=== PATIENT | male | born 1925 | race Caucasian/White ===

== ENCOUNTER 2016-10-21 15:59 | Inpatient (IN) ==
[2016-10-21] MEDS ORDERED: 0.9 % SODIUM CHLORIDE 500 ML IV ONE (16:31)
--- NOTE | 2016-10-21 16:54 | Emergency Department Note ---
Dizziness HPI - General Chief Complaint: Dizziness Stated Complaint: dizziness, sob, hypotension Time Seen by Provider: 10/21/16 16:46 Source: other Mode of arrival: wheelchair Limitations: no limitations - History of Present Illness HPI Narrative: 89-year-old male seen in wound care, was seen by his primary care provider this morning dr Alvarez at [facility] for CHF and a diuretic was increased. Not picked up his medications yet. when leaving wound care . He stood up and became lightheaded, dizzy was no syncope. No loss of consciousness, but at this time. He states he feels much improved been no signs or symptoms. He does have edema to both extremities and is causing blisters the left lower leg which is being treated in wound care at this time. He is supposed to be wearing his compression socks but has not recently. He has a history of CHF. Dr. Alvarez has increased his torsemide. pt denies any chest pain, or shortness of breath. He's had no cough, no fever, no chills, denies urgency, frequency, dysuria, no nausea, vomiting or diarrhea. - Related Data Home Medications Medication Instructions Recorded Confirmed Albuterol Sulfate [Ventolin] 2 puff INH BID 10/21/16 10/21/16 Apixaban [Eliquis] 2.5 mg PO BID 10/21/16 10/21/16 Atorvastatin [Lipitor] 20 mg PO HS 10/21/16 10/21/16 Budesonide [Pulmicort] 0.5 mg NEB Q12 10/21/16 10/21/16 Carvedilol [Coreg] 1.5 tab PO BID 10/21/16 10/21/16 Docusate Sodium [Colace] 100 mg PO BID 10/21/16 10/21/16 Ipratropium/Albuterol [Duoneb] 3 ml NEB Q6HP PRN 10/21/16 10/21/16 Levothyroxine Sodium [Synthroid] 100 mcg PO DAILY 10/21/16 10/21/16 Ondansetron HCl [Zofran] 4 mg PO Q6H PRN 10/21/16 10/21/16 Spironolactone 25 mg PO DAILY 10/21/16 10/21/16 Tamsulosin HCl [Flomax] 0.4 mg PO DAILY 10/21/16 10/21/16 Tiotropium [place] [Spiriva] 18 mcg INH DAILY 10/21/16 10/21/16 Torsemide [Demadex] 40 mg PO BID 10/21/16 10/21/16 metFORMIN HCL [Fortamet] 500 mg PO BID 10/21/16 10/21/16 predniSONE [Prednisone] 10 mg PO DAILY 10/21/16 10/21/16 Allergies Allergy/AdvReac Type Severity Reaction Status Date / Time GILMER Inhibitors Allergy Verified 10/21/16 16:11 Sulfa (Sulfonamide Allergy Verified 10/21/16 16:11 Antibiotics) furosemide AdvReac Verified 10/21/16 16:11 polypropyline glycol AdvReac Uncoded 10/21/16 16:11 Review of Systems All systems ED: reviewed and negative except as stated. Constitutional: Denies: fever, chills Cardiovascular: Denies: chest pain, palpitations Respiratory: Denies: cough, dyspnea Gastrointestinal: Denies: abdominal pain Genitourinary: Denies: urgency, dysuria Musculoskeletal: Denies: back pain Integumentary: Denies: rash, lesions Neurological: Denies: headache, weakness Psychiatric: Denies: anxiety, depression Endocrine: Denies: fatigue Hematological/Lymphatic: Denies: easy bleeding Allergic/Immunologic: Denies: facial swelling Past Medical History - Past Medical History Medical history: Reports: atrial fibrillation, CHF, COPD, diabetes Surgical history ED: Reports: appendectomy, hip replacement, other (cabg) Family history: Reports: CAD/[place] (father), diabetes (father) - Social History smoking status: Former smoker Alcohol use: Reports: Rarely Drug use: Reports: none Physical Exam - General Limitations: no limitations General appearance: alert - Head Head exam: atraumatic - Eye Eye exam: Present: normal appearance, PERRL - ENT ENT exam: normal exam, normal oropharynx - Neck Neck exam: Present: normal inspection, full ROM - Chest Chest inspection: Present: normal inspection, symmetric chest wall rise - Respiratory Respiratory exam: Present: normal lung sounds bilaterally. Absent: respiratory distress, wheezes - Cardiovascular Cardiovascular exam: Present: regular rate, normal rhythm - Abdominal Exam Abdominal exam: Present: soft. Absent: distention, tenderness - Extremities Exam Extremities exam: Present: pedal edema - Back Exam Back exam: Present: normal inspection - Neurological Exam Neurological exam: Present: alert, oriented X3, CN II-XII intact - Psychiatric Psychiatric exam: Present: normal affect, normal mood Course Vital Signs Temperature 98.0 F 10/21/16 15:59 Pulse Rate 92 H 10/21/16 15:59 Respiratory Rate 14 10/21/16 15:59 Blood Pressure 101/65 10/21/16 15:59 Pulse Oximetry (%) 92 10/21/16 15:59 Temperature 98.0 F 10/21/16 20:24 Pulse Rate 83 10/21/16 23:00 Respiratory Rate 14 10/21/16 23:00 Blood Pressure 112/71 10/21/16 20:24 Pulse Oximetry (%) 98 10/21/16 23:00 Dizziness - Lab Data Result diagrams: 10/21/16 16:47 10/21/16 16:47 Lab Results 10/21/16 10/21/16 10/21/16 Range/Units 16:47 16:47 16:47 WBC 9.5 (4.5-11.0) K/mcL RBC 3.84 L (4.50-5.90) M/mcL Hgb 11.4 L (13.5-16.5) g/dL Hct 34.7 L (41.0-55.0) % MCV 90.4 (80.0-100.0) fL MCH 29.7 (26.0-34.0) pg MCHC 32.9 (31.0-36.0) g/dL RDW 16.5 H (11.5-14.5) % Plt Count 180 (140-440) K/mcL MPV 8.4 (7.4-10.4) fL Gran % 81.5 H (38.0-78.0) % Lymph % (Auto) 11.0 L (15.5-49.0) % [place] % (Auto) 6.8 (1.0-12.0) % Eos % (Auto) 0.5 (0.0-7.0) % Baso % (Auto) 0.2 (0.0-2.0) % Gran # 7.8 (1.8-8.0) K/mcL Lymph # 1.1 L (1.5-4.8) K/mcL [place] # 0.6 (0.1-0.9) K/mcL Eos # 0 (0.0-0.7) K/mcL Baso # 0 (0.0-0.3) K/mcL Total Counted 100 Seg Neutrophils % 84 H (38-78) % Band Neutrophils % 1 (0-10) % Lymphocytes % 8 L (15-49) % Monocytes % (Manual) 7 (1-12) % Platelet Estimate Normal (NORMAL) RBC Morphology Abnorm A (NORMAL) Anisocytosis 1+ A (NONE SEEN) ESR (0-15) mm/hr VBG Lactic Acid 2.9 H (0.5-2.2) mmol/L Sodium 141 (133-145) mmol/L Potassium 3.9 (3.3-5.1) mmol/L Chloride 97 (96-108) mmol/L Carbon Dioxide 28 (22-30) mmol/L Anion Gap 16.0 (8-16) BUN 50 H (8-23) mg/dl Creatinine 1.6 H (0.7-1.2) mg/dl GFR Calculation 38 Glucose 161 H (70-105) mg/dL Calcium 8.9 (8.6-10.4) mg/dl Total Bilirubin 0.6 (0.0-1.0) mg/dL AST 12 (0-37) U/l ALT 11 (0-40) U/l Alkaline Phosphatase 55 (39-117) U/L Total Creatine Kinase 24 (24-195) IU/L CK-MB (CK-2) 1.6 (0-4.9) ng/ml Troponin T (0-0.03) ng/ml C-Reactive Protein (0.0-0.8) mg/dl NT-Pro-B Natriuret Pep (0-450) pg/ml Total Protein 6.2 (5.9-8.4) gm/dL Albumin 3.3 (3.2-5.2) gm/dL Globulin 2.9 (2.2-3.7) gm/dL Albumin/Globulin Ratio 1.1 (1.0-2.3) Procalcitonin (<0.10) ng/mL Mycoplasma pneumon IgM (NEGATIVE) Ur Strep pneumoniae Ag (NEGATIVE) 10/21/16 10/21/16 10/21/16 Range/Units 16:47 16:47 16:47 WBC (4.5-11.0) K/mcL RBC (4.50-5.90) M/mcL Hgb (13.5-16.5) g/dL Hct (41.0-55.0) % MCV (80.0-100.0) fL MCH (26.0-34.0) pg MCHC (31.0-36.0) g/dL RDW (11.5-14.5) % Plt Count (140-440) K/mcL MPV (7.4-10.4) fL Gran % (38.0-78.0) % Lymph % (Auto) (15.5-49.0) % [place] % (Auto) (1.0-12.0) % Eos % (Auto) (0.0-7.0) % Baso % (Auto) (0.0-2.0) % Gran # (1.8-8.0) K/mcL Lymph # (1.5-4.8) K/mcL [place] # (0.1-0.9) K/mcL Eos # (0.0-0.7) K/mcL Baso # (0.0-0.3) K/mcL Total Counted Seg Neutrophils % (38-78) % Band Neutrophils % (0-10) % Lymphocytes % (15-49) % Monocytes % (Manual) (1-12) % Platelet Estimate (NORMAL) RBC Morphology (NORMAL) Anisocytosis (NONE SEEN) ESR 31 H (0-15) mm/hr VBG Lactic Acid (0.5-2.2) mmol/L Sodium (133-145) mmol/L Potassium (3.3-5.1) mmol/L Chloride (96-108) mmol/L Carbon Dioxide (22-30) mmol/L Anion Gap (8-16) BUN (8-23) mg/dl Creatinine (0.7-1.2) mg/dl GFR Calculation Glucose (70-105) mg/dL Calcium (8.6-10.4) mg/dl Total Bilirubin (0.0-1.0) mg/dL AST (0-37) U/l ALT (0-40) U/l Alkaline Phosphatase (39-117) U/L Total Creatine Kinase (24-195) IU/L CK-MB (CK-2) (0-4.9) ng/ml Troponin T < 0.01 (0-0.03) ng/ml C-Reactive Protein (0.0-0.8) mg/dl NT-Pro-B Natriuret Pep 3788.0 H (0-450) pg/ml Total Protein (5.9-8.4) gm/dL Albumin (3.2-5.2) gm/dL Globulin (2.2-3.7) gm/dL Albumin/Globulin Ratio (1.0-2.3) Procalcitonin (<0.10) ng/mL Mycoplasma pneumon IgM (NEGATIVE) Ur Strep pneumoniae Ag (NEGATIVE) 10/21/16 10/21/16 10/21/16 Range/Units 16:47 16:50 16:50 WBC (4.5-11.0) K/mcL RBC (4.50-5.90) M/mcL Hgb (13.5-16.5) g/dL Hct (41.0-55.0) % MCV (80.0-100.0) fL MCH (26.0-34.0) pg MCHC (31.0-36.0) g/dL RDW (11.5-14.5) % Plt Count (140-440) K/mcL MPV (7.4-10.4) fL Gran % (38.0-78.0) % Lymph % (Auto) (15.5-49.0) % [place] % (Auto) (1.0-12.0) % Eos % (Auto) (0.0-7.0) % Baso % (Auto) (0.0-2.0) % Gran # (1.8-8.0) K/mcL Lymph # (1.5-4.8) K/mcL [place] # (0.1-0.9) K/mcL Eos # (0.0-0.7) K/mcL Baso # (0.0-0.3) K/mcL Total Counted Seg Neutrophils % (38-78) % Band Neutrophils % (0-10) % Lymphocytes % (15-49) % Monocytes % (Manual) (1-12) % Platelet Estimate (NORMAL) RBC Morphology (NORMAL) Anisocytosis (NONE SEEN) ESR (0-15) mm/hr VBG Lactic Acid (0.5-2.2) mmol/L Sodium (133-145) mmol/L Potassium (3.3-5.1) mmol/L Chloride (96-108) mmol/L Carbon Dioxide (22-30) mmol/L Anion Gap (8-16) BUN (8-23) mg/dl Creatinine (0.7-1.2) mg/dl GFR Calculation Glucose (70-105) mg/dL Calcium (8.6-10.4) mg/dl Total Bilirubin (0.0-1.0) mg/dL AST (0-37) U/l ALT (0-40) U/l Alkaline Phosphatase (39-117) U/L Total Creatine Kinase (24-195) IU/L CK-MB (CK-2) (0-4.9) ng/ml Troponin T (0-0.03) ng/ml C-Reactive Protein 1.6 H (0.0-0.8) mg/dl NT-Pro-B Natriuret Pep (0-450) pg/ml Total Protein (5.9-8.4) gm/dL Albumin (3.2-5.2) gm/dL Globulin (2.2-3.7) gm/dL Albumin/Globulin Ratio (1.0-2.3) Procalcitonin < 0.05 (<0.10) ng/mL Mycoplasma pneumon IgM Negative (NEGATIVE) Ur Strep pneumoniae Ag Negative (NEGATIVE) Disposition Clinical Impression: CHF (congestive heart failure), Infiltrate noted on imaging study Disposition: Xfer As Inpt ([facility]) Condition: Good
[2016-10-21] MEDS: 0.9 % SODIUM CHLORIDE 500 ML IV SCH (16:55)
[2016-10-21] MEDS ORDERED: 0.9 % SODIUM CHLORIDE 1,000 ML IV SCH ×2 (17:00→20:29)
[2016-10-21 17:19] LABS: Basophils # (Auto) 0 K/mcL (0.0-0.3); Basophils % (Auto) 0.2 % (0.0-2.0); Eosinophils # (Auto) 0 K/mcL (0.0-0.7); Eosinophils % (Auto) 0.5 % (0.0-7.0); Granulocytes % (Auto) 81.5 % (38.0-78.0); Lymphocytes # (Auto) 1.1 K/mcL (1.5-4.8); Mean Cell Volume 90.4 fL (80.0-100.0); Mean Corpuscular HGB Conc 32.9 g/dL (31.0-36.0); Mean Corpuscular Hemoglobin 29.7 pg (26.0-34.0); Monocytes # (Auto) 0.6 K/mcL (0.1-0.9); Monocytes % (Auto) 6.8 % (1.0-12.0); Platelet Count 180 K/mcL (140-440); RBC 3.84 M/mcL (4.50-5.90); Red Cell Distribution Width 16.5 % (11.5-14.5)
[2016-10-21 17:36] LABS: Creatine Kinase MB 1.6 ng/ml (0-4.9)
[2016-10-21 17:37] LABS: ALT/SGPT 11 U/l (0-40); Albumin 3.3 gm/dL (3.2-5.2); Albumin/Globulin Ratio 1.1 (1.0-2.3); Alkaline Phosphatase 55 U/L (39-117); Blood Urea Nitrogen 50 mg/dl (8-23); Creatine Kinase 24 IU/L (24-195)
--- NOTE | 2016-10-21 17:38 | XRay Report ---
CLINICAL INFORMATION: Hypotension. History of congestive heart failure TECHNIQUE: Upright AP portable chest x-ray COMPARISON: None. FINDINGS: Previous median sternotomy. Mild cardiomegaly. Pulmonary vascularity is prominent. There are bibasilar infiltrates consistent with interstitial pulmonary edema. No significant pleural effusion. No consolidation. Clinical correlation and follow-up radiographs necessary IMPRESSION: Mild bibasilar infiltrates consistent with pulmonary edema. Follow-up radiographs recommended. Interpreted and Authenticated by: Andrae Hoover 10/21/16
[2016-10-21] MEDS ORDERED: cefTRIAXone 1 GM in DEXTROSE 5% IN WATER 50 ML IV ONE (18:25)
[2016-10-21] MEDS ORDERED: LEVOFLOXACIN 500 MG/100 ML BAG IV ONE (18:25)
[2016-10-21 18:47] LABS: Anisocytosis 1+ (NONE SEEN); Band Neutrophils % 1 % (0-10); Lymphocytes % 8 % (15-49); Monocytes % (Manual) 7 % (1-12); Platelet Estimate NORMAL (NORMAL); Segmented Neutrophils % 84 % (38-78)
[2016-10-21 18:49] LABS: RBC Morphology ABNORM (NORMAL)
[2016-10-21] MEDS ORDERED: cefTRIAXone 1 GM VIAL ONE (19:25)
[2016-10-21] MEDS ORDERED: POTASSIUM CHLORIDE 20 MEQ PACKET PO PRN (20:29)
[2016-10-21] MEDS ORDERED: DEXTROSE 50% 50 ML VIAL IV PRN (20:29)
[2016-10-21] MEDS ORDERED: ONDANSETRON 4 MG/2 ML VIAL IV PRN (20:29)
[2016-10-21] MEDS ORDERED: ACETAMINOPHEN 1,000 MG/100 ML BOTTLE IV PRN (20:29)
[2016-10-21] MEDS ORDERED: ACETAMINOPHEN 325 MG TABLET PO PRN (20:29)
[2016-10-21] MEDS ORDERED: MAGNESIUM SULFATE 2 GM/50 ML BAG IV PRN (20:29)
[2016-10-21] MEDS ORDERED: PIPERACILLIN SODIUM/TAZOBACTAM 3.375 GM VIAL IV ONE (20:55)
[2016-10-21] MEDS ORDERED: ATORVASTATIN 20 MG TABLET PO SCH (21:00)
[2016-10-21] MEDS ORDERED: SENNOSIDES/DOCUSATE SODIUM 1 TAB TABLET PO SCH (21:00)
[2016-10-21] MEDS: HEPARIN 5,000 UNIT/ML VIAL SQ SCH (21:38)
[2016-10-21] MEDS: DOCUSATE SODIUM 100 MG CAPSULE PO SCH (21:39)
[2016-10-21] MEDS: INSULIN LISPRO 1 UNIT/0.01 ML UNIT SQ SCH (21:40)
[2016-10-21] MEDS: APIXABAN 5 MG TABLET PO SCH (21:40)
[2016-10-21] MEDS: ALBUTEROL SULFATE 1 PUFF INHALER INH SCH (21:42)
[2016-10-21] MEDS: 0.9 % SODIUM CHLORIDE 10 ML SYRINGE IV SCH (21:42)
[2016-10-21] MEDS: IPRATROPIUM/ALBUTEROL 3 ML AMPUL.NEB NEB SCH (23:00)
[2016-10-21] MEDS: BUDESONIDE 0.5 MG/2 ML AMPUL.NEB NEB SCH (23:10)
[2016-10-21 23:36] LABS: Strep Pneumoniae Antigen - UR NEGATIVE (NEGATIVE)
[2016-10-22] MEDS: IPRATROPIUM/ALBUTEROL 3 ML AMPUL.NEB NEB SCH ×6 (02:26→22:35)
[2016-10-22] MEDS: PIPERACILLIN SODIUM/TAZOBACTAM 2.25 GM in DEXTROSE 5% IN WATER 50 ML IV SCH ×2 (02:26→05:38)
[2016-10-22] MEDS ORDERED: PIPERACILLIN SODIUM/TAZOBACTAM 2.25 GM VIAL IV ONE ×2 (02:27→05:34)
[2016-10-22] MEDS: 0.9 % SODIUM CHLORIDE 10 ML SYRINGE IV SCH ×3 (05:37→22:00)
[2016-10-22 05:48] LABS: Mean Cell Volume 91.7 fL (80.0-100.0); Mean Corpuscular HGB Conc 32.6 g/dL (31.0-36.0); Mean Corpuscular Hemoglobin 29.9 pg (26.0-34.0); Platelet Count 150 K/mcL (140-440); RBC 3.63 M/mcL (4.50-5.90); Red Cell Distribution Width 16.2 % (11.5-14.5)
[2016-10-22 06:01] LABS: ALT/SGPT 9 U/l (0-40); Albumin/Globulin Ratio 1.2 (1.0-2.3); Alkaline Phosphatase 45 U/L (39-117); Bilirubin,Direct < 0.2 mg/dL (0.0-0.3); Blood Urea Nitrogen 43 mg/dl (8-23); Gamma Glutamyl Transpeptidase 13 U/L (8-61); Magnesium 1.9 mg/dL (1.6-2.5); Uric Acid 9.2 mg/dL (2.5-8.0)
[2016-10-22 06:20] LABS: Anisocytosis 1+ (NONE SEEN); Band Neutrophils % 1 % (0-10); Basophils % (Manual) 1 % (0-2); Lymphocytes % 16 % (15-49); Monocytes % (Manual) 7 % (1-12); Myelocytes % 1 % (0-0); Ovalocytes FEW (NONE SEEN); Platelet Estimate NORMAL (NORMAL); RBC Morphology ABNORM (NORMAL); Segmented Neutrophils % 74 % (38-78)
[2016-10-22] MEDS ORDERED: LEVOTHYROXINE 100 MCG TABLET PO SCH (07:30)
--- NOTE | 2016-10-22 07:37 | Echocardiogram Report ---
ECHOCARDIOGRAM: 2-D and M-mode echocardiography with cardiac Doppler and color flow imaging were performed with a Tosimport2a Aplio MX. Indication is heart failure. Both atria appeared severely enlarged. RV cavity size appeared normal. LV cavity size appeared normal to small. Wall thickness appeared mildly increased. Systolic performance appeared normal. Estimated ejection fraction is 65%. Aortic root diameter appeared normal. The aortic valve appeared heavily calcified. Valve opening appeared reduced. Maximal instantaneous aortic outflow systolic gradient as obtained from the apex and as calculated by the modified Bernoulli equation was 30 mmHg. Mean gradient was 21 mmHg. Valve area as calculated by the continuity equation was 1.0 cm2 and area index was 0.45 cm2/ m2, moderate to severe aortic stenosis, and possibly an overestimation of the severity. Aortic regurgitation, probably mild problems with 1+), was noted. The mitral and tricuspid valves appeared unremarkable. Mitral annular calcification was present. Doppler interrogation of LV inflow disclosed a monophasic spectral dispersion pattern related to absent AV synchrony. Mitral regurgitation, probably mild (1+), was noted by color flow imaging. Pulmonary venous interrogation disclosed ''d'' wave dominance indicating elevated pulmonary wedge pressure. The pulmonic valve showed absent ''a'' wave in the absence of AV synchrony. Pulmonary artery acceleration time appeared normal. There was no evidence for pulmonic stenosis. Pulmonic regurgitation, probably mild (1+), and tricuspid regurgitation, probably moderate (2+), were demonstrated. No intracardiac shunting was appreciated. There was no evidence for pericardial effusion. The IVC was of normal diameter and showed near normal respiratory variation. Calculated estimate of PA systolic pressure is mildly elevated at 40 mmHg. Atrial fibrillation with a moderate response was present. Conclusion:Aortic stenosis, probably moderate. Mild concentric LVH with normal systolic performance. Mitral annular calcification with mitral regurgitation, probably mild (1+), with severe LA enlargement, elevated pulmonary wedge pressure, and mild and probably passive pulmonary hypertension. Severe RA enlargement. (See accompanying M-mode and Doppler reports for quantitation.) ECHOCARDIOGRAPHY M-MODE CALCULATIONS: HT: 72'' WT: 211 BSA: 2.18 m2 NORMALS AORTA: AORTIC ROOT 3.2 2.0-3.7 cm LEFT ATRIUM 60 1.9-4.0 cm MITRAL VALVE: EXCURSION 1.8 1.9-2.7 cm EPSS 0.3 <0.5 cm LT VENTRICLE: LVID (ED) 3.5 3.5-5.7 cm LVID (ES) 2.2 SEPTAL THICKNESS 1.3 0.6-1.1 cm SEPTAL EXCURSION 0.2 0.3-0.8 cm LVPW THICKNESS 1.3 0.6-1.1 cm LVPW EXCURSION 1.0 0.9-1.4 cm MINOR AXIS FS 3.7 25%-40% RT VENTRICLE: RVID (ED) 1.5 0.9-2.6 cm(up to 3cm if LLD) QUALITATIVE DOPPLER FLOW STUDIES MITRAL VALVE MR, probably mild (1+) AORTIC VALVE AR, probably mild (1+); , probably moderate TRICUSPID VALVE TR, probably moderate (2+) PULMONIC VALVE AK, probably mild (1+) QUANTITATIVE DOPPLER FLOW STUDIES SAMPLE SITES VELOCITIES PEAK PRESSURE VALVE AREA and/or VALVE WINDOW (PEAK,M/SEC) DROP (GRADIENT) PRESSURE HALF-TIME MV (Diastole) 1.2 -- -- MV (Systole) -- -- -- AO (Diastole) 4.0 -- 630 msec AO (Systole) 2.7 30 mmHg; 21 mmHg (mean) 1.0 cm2, 0.45 cm2/m2 TV (Systole) 2.8 -- -- PV (Systole) 1.2 -- -- PV (Diastole) 1.5 ABRAHAM:selwyn Job ID: [id number] Doc ID: [id number] Gustavo Bullard MD
[2016-10-22] MEDS: INSULIN LISPRO 1 UNIT/0.01 ML UNIT SQ SCH ×3 (07:52→17:28)
[2016-10-22] MEDS ORDERED: CARVEDILOL 12.5 MG TABLET PO SCH (08:00)
[2016-10-22] MEDS ORDERED: predniSONE 5 MG TABLET PO SCH (08:00)
[2016-10-22] MEDS ORDERED: TORSEMIDE 10 MG TABLET PO SCH (09:00)
[2016-10-22] MEDS ORDERED: TIOTROPIUM BROMIDE 18 MCG INHALANT INH SCH (09:00)
[2016-10-22] MEDS ORDERED: MULTIVIT,THER IRON,CA,FA & MIN 1 TABLET PO SCH (09:00)
[2016-10-22] MEDS ORDERED: TAMSULOSIN 0.4 MG CAPSULE PO SCH (09:00)
[2016-10-22] MEDS: BUDESONIDE 0.5 MG/2 ML AMPUL.NEB NEB SCH ×2 (09:03→19:52)
--- NOTE | 2016-10-22 09:20 | History and Physical Report ---
DATE OF ADMISSION: 10/21/2016 PRIMARY CARE PHYSICIAN: Sergio Gu MD. REASON FOR ADMISSION: Dizziness, weakness. HISTORY OF CHIEF COMPLAINT: This is an 89-year-old with known history of congestive heart failure, hypertension, atrial fibrillation and lower extremity wounds who was evaluated at the wound care clinic. The patient has been getting progressively weak, dizzy, lightheaded raising a concern at the wound care clinic and subsequently was transferred to [facility] ER. Initial workup was significant for bibasilar infiltrate along with pulmonary edema. The patient was started on diuretics and Hospitalist Service was consulted. At the time of examination, the patient is alert. He appears fatigued but is able to provide answers to most of the questions. He denies excessive salt in diet. He denies recent NSAID intake or missing his regular medications. He has not been feeling well over the last week or so with gradual increasing lightheadedness, dizziness and decline in functional ability. He suffers from chronic lymphedema from underlying congestive heart failure and is on torsemide twice daily. He has noted bilateral lower extremity stasis wounds which have been evaluated by wound care clinic. Other than that, patient denies sick contacts, fever, diarrhea, nausea, vomiting, dysuria. He further denies headache, photophobia, productive sputum, chest palpitation, neck pain or loss of consciousness. REVIEW OF SYSTEMS: Ten-point review of system was performed and negative except the ones discussed above. PAST MEDICAL HISTORY: 1. History of pulmonary hypertension. 2. Hypertension. 3. Congestive heart failure. 4. Diabetes mellitus type 2. 5. Hypothyroidism. 6. Chronic lymphedema. 7. Reactive airway disease. 8. BPH. CURRENT MEDICATIONS: 1. Albuterol inhaler as needed. 2. Budesonide q.12. 3. Coreg 12.5 mg b.i.d. 4. Levothyroxine 100 mcg. 5. Prednisone 10 mg. 6. Tamsulosin 0.4 mg. 7. Torsemide 40 mg b.i.d. 8. Tiotropium 18 mcg inhaled. 9. Metformin 500 mg. 10. Apixaban 2.5 mg b.i.d. 11. Atorvastatin 20 mg. FAMILY HISTORY: Significant for father with coronary artery disease, OR, diabetes. SOCIAL HISTORY: The patient is retired. 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 The patient lives independently, carries over a [id number] history of smoking, but quit in 1984. FULL CODE STATUS. Denies any substance abuse. PHYSICAL EXAMINATION: GENERAL: The patient is alert. However, he is short of breath, slightly lightheaded. VITAL SIGNS: Blood pressure 92/59, respiratory rate 20, temperature 96.8, pulse 99, irregular, sats 97% on 1.5 liters of oxygen. HEENT: Pupils symmetric. Oral cavity is dry. No ear or nose discharge. Head is normocephalic and atraumatic. NECK: No lymphadenopathy. CHEST: S1, S2, irregular rhythm. ESM grade 1. Diminished breath sounds at bases, late inspiratory crackles. Bilateral bibasilar posterior lateral chest. ABDOMEN: Soft. LOWER EXTREMITIES: Significant for 1+ pitting edema from knee to the ankle along with stasis changes. Bilateral lower extremities covered in dressing. SKIN: Otherwise, no suspicious lesion. No joint swelling. PSYCH: Alert and cooperative. No anxiety or agitation. NEURO: Nonfocal, moving all four extremities. LABS AND IMAGING: White count 9.5, hemoglobin 11.4, platelets 180. Lactic acid 2.9. Sodium 141, potassium 3.9, creatinine 1.6, BUN 50, BNP 3078. Troponin is negative. Procalcitonin less than 0.5. X-ray chest: Bibasilar infiltrates consistent with pulmonary edema. ASSESSMENT AND PLAN: An 89-year-old admitted with acute decompensated heart failure, pulmonary edema. 1. Acute pulmonary edema. Continue diuresis. Echocardiogram. Continue beta mary, GILMER inhibitor, spironolactone at home doses. Rule out cause of acute decompensation. 2. Hypoxic respiratory failure. Continue supplemental oxygen. 3. Acute on chronic kidney disease. Continue close monitoring. 4. Lower extremity wounds. Continue Wound Care consult and recommendations as per wound physician. 5. Other prior medical issues, including: a. History of atrial fibrillation. Continue rate control. Continue Coreg. b. Anticoagulation for CVA prophylaxis. Continue apixaban. c. Hyperlipidemia. Continue statin. d. History of reactive airway disease/COPD. Continue budesonide, albuterol, DuoNeb, along with prednisone. e. BPH. Continue tamsulosin. f. Diabetes mellitus type 2. Continue basal prandial insulin. PLAN FOR TODAY: 1. Admit in ICU. 2. Initiate diuresis. 3. Antibiotic coverage for basilar infiltrates and deescalate if no evidence of infection. 4. Wound Care consult. 5. Preexisting medical condition management as above. AA:[email or web address] Job ID: [id number] Doc ID: [id number] Carlo Gu MD
[2016-10-22] MEDS: DOCUSATE SODIUM 100 MG CAPSULE PO SCH ×2 (09:24→21:47)
[2016-10-22] MEDS: HEPARIN 5,000 UNIT/ML VIAL SQ SCH ×2 (09:24→11:21)
[2016-10-22] MEDS: ALBUTEROL SULFATE 1 PUFF INHALER INH SCH (09:27)
[2016-10-22] MEDS: APIXABAN 5 MG TABLET PO SCH (09:27)
[2016-10-22] MEDS ORDERED: ACETAMINOPHEN 1,000 MG/100 ML BOTTLE IV PRN (11:58)
[2016-10-22] MEDS ORDERED: ACETAMINOPHEN 325 MG TABLET PO PRN (11:58)
[2016-10-22] MEDS ORDERED: MAGNESIUM SULFATE 2 GM/50 ML BAG IV PRN (11:58)
[2016-10-22] MEDS ORDERED: ONDANSETRON 4 MG/2 ML VIAL IV PRN (11:58)
[2016-10-22] MEDS ORDERED: DEXTROSE 50% 50 ML VIAL IV PRN (11:58)
[2016-10-22] MEDS ORDERED: 0.9 % SODIUM CHLORIDE 1,000 ML IV SCH (11:58)
[2016-10-22] MEDS ORDERED: POTASSIUM CHLORIDE 20 MEQ PACKET PO PRN (11:58)
--- NOTE | 2016-10-22 13:24 | Internal Med Progress Note ---
Medical - PN: Subj Patient information: Note initiated : 10/22/16 at 1:23 pm Service Date, if different from initiated Date: [] Patient: Bird Knight 89 y/o M admitted on 10/21/16 for Dizziness, SOB, Hypotension. Chief Complaint: [] Interval history: 10/21- -year-old with history of congestive heart failure/chronic lymphedema admitted with lightheadedness and decompensated heart failure. admitted as inpatient. Start aggressive diuresis. Question of chest infiltrates on imaging. but no fever or evidence of infection. negative for calcitonin. Echo pending 10/22-echo moderate with severe LA enlargement and passive pulmonary congestion. Continue diuresis. Outpatient cardiology follow-up for management with advanced symptoms including exertional dyspnea and lightheadedness. continue diuresis. Patient has been experiencing multiple falls in the recent past. High risk decompensation. Case management to arrange SNF transfer. - Constitutional Vitals: Vital Signs Temp Pulse Resp BP Pulse Ox 98.2 F 99 H 20 102/64 92 10/22/16 12:00 10/22/16 12:00 10/22/16 12:00 10/22/16 12:00 10/22/16 12:00 Period Temp Pulse Resp BP Sys/Granados Pulse Ox Last 24 Hr 97.8 F-98.2 F 70-101 12-26 87-112/58-92 86-100 Intake and Output 10/21/16 10/22/16 10/22/16 21:59 05:59 13:59 Intake Total 50 / 1150 150 / 150 1072 / 1072 Output Total 75 / 75 575 / 575 225 / 225 Balance -25 / 1075 -425 / -425 847 / 847 Weight 212 lb 9.6 oz 212 lb 9.6 oz Patient Weight 10/23/16 05:59 Weight 212 lb 9.6 oz Intake & Output: Intake & Output 10/21/16 10/22/16 10/22/16 21:59 05:59 13:59 Intake Total 50 / 1150 150 / 150 1072 / 1072 Output Total 75 / 75 575 / 575 225 / 225 Balance -25 / 1075 -425 / -425 847 / 847 Weight 212 lb 9.6 oz 212 lb 9.6 oz Intake: IV 50 / 50 50 / 50 572 / 572 Sodium Chloride 0.9% 1, 572 / 572 000 ml @ 50 mls/hr IV . Q20H DAMARIS Rx#:[id number] Zosyn 2.25 gm In Dextrose 50 / 50 5% in Water 50 ml @ 100 mls/hr IV Q6H DAMARIS Rx#: [id number] Rocephin 1 gm In Dextrose 50 / 50 5% in Water 50 ml @ 100 mls/hr IV ONCE ONE Rx#: [id number] Oral 100 / 100 500 / 500 Output: Void Amount 75 / 75 575 / 575 225 / 225 Other: Meal Breakfast Feeding Ability Assist with Tray Set Up General appearance: cooperative, no acute distress Exam: jection systolic murmur Randy breath sounds bases along with late inspiratory crackles abdomen soft nontender Lymphedema No pallor Medical - PN: Obj Da - Labs CBC & Chem 7: 10/22/16 04:50 10/22/16 04:50 Labs: Abnormal Lab Results 10/22/16 10/22/16 04:50 04:50 RBC 3.63 L Hgb 10.8 L Hct 33.3 L RDW 16.2 H Myelocytes % 1 H RBC Morphology Abnorm A Anisocytosis 1+ A Ovalocytes Few A RBC Fragments Few A Carbon Dioxide 32 H BUN 43 H Creatinine 1.6 H Uric Acid 9.2 H Total Protein 5.5 L Albumin 3.0 L Meds: Medications Acetaminophen (Tylenol) 650 mg PO Q4-6HP PRN PRN Reason: PAIN/FEVER > 101 Albuterol Sulfate (Ventolin) 2 puff INH BID DAMARIS Albuterol/Ipratropium (Duoneb) 3 ml NEB Q4HRT DAMARIS Atorvastatin Calcium (Lipitor) 20 mg PO HS DAMARIS Budesonide (Pulmicort) 0.5 mg NEB Q12 DAMARIS Carvedilol (Coreg) 12.5 mg PO BIDCC DAMARIS Dextrose (Dextrose 50%) 0 ml IV UD PRN PRN Reason: Hypoglycemia Diagnostic Test (Pha) (Accu-Chek) 1 each FS ACHS DAMARIS Docusate Sodium (Colace) 100 mg PO BID DAMARIS Magnesium Sulfate (Magnesium Sulfate) 2 gm in 50 mls @ 50 mls/hr IV UD PRN PRN Reason: MG = or < 1.7 Acetaminophen (Ofirmev) 1,000 mg in 100 mls @ 200 mls/hr IV Q6HP PRN PRN Reason: PAIN/FEVER > 101 Insulin Human Lispro (Humalog) 0 unit SQ ACHS DAMARIS PRN Reason: Protocol Iron Carb/Multivit/[place]/Folic Acid (Multivitamin W/Minerals) 1 tab PO DAILY DAMARIS Levothyroxine Sodium (Synthroid) 100 mcg PO QAMAC [facility] Apixaban 2.5 Mg (Tablet) 1 dose PO BID DAMARIS Ondansetron HCl (Zofran) 4 mg IV Q4-6HP PRN PRN Reason: Nausea And Vomiting Potassium Chloride (Klor-Con) 40 meq PO DAILYP PRN PRN Reason: K+ < 3.5 Prednisone (Prednisone) 10 mg PO QAC DAMARIS Senna/Docusate Sodium (Senna Plus Tablet) 1 tab PO HS DAMARIS Sodium Chloride (Saline Flush) 10 ml IV Q8 [facility]ARIS Tamsulosin HCl (Flomax) 0.4 mg PO DAILY DAMARIS Tiotropium [place] (Spiriva) 18 mcg INH DAILY DAMARIS Torsemide (Demadex) 40 mg PO BID [facility] Medical - PN: A/P - Time Spent With Patient Total time spent is greater than 50% in coordination of care (as documented) at patient's floor/unit and/or counseling patient: 25 - 35 minutes (1) Heart failure, diastolic, with acute decompensation Status: Acute Assessment and plan: * Acute decompensated heart failure With pulmonary edema-diastolic. Severe with left atrial enlargement and passive pulmonary congestion. Recent multiple falls and exertional lightheadedness/dyspnea suggestive of symptomatic aortic stenosis. Continue beta mary and diuresis. outpatient cardiology referral for valve replacement on discharge * Dyspnea secondary to above-PT OT/supplemental oxygen * yperlipidemia on statin * Hypertension on Coreg. hold spironolactone * history of COPD on Spiriva/budesonided * DM type II on metformin/ prandial insulin * BPH on tamsulosin * hypothyroidism on thyroxine * nticoagulation on rivaroxaban plan * ontinue diuresis/Beta mary * pre-existing medical condition management as above * aggressive PT OT * Case management to arrange SNF transfer in light of high risk falls * Outpatient cardiology consult for aortic valveRepair assessment in light of symptomatic with exertional dyspnea and lightheadedness leading to multiple falls Current Visit: Yes Medical - PN: Qual - VTE Deep Vein Thrombosis/Pulmonary Embolism Present on Admission: No
[2016-10-22] MEDS: CARVEDILOL 12.5 MG TABLET PO SCH (17:31)
[2016-10-22] MEDS ORDERED: HEPARIN 5,000 UNIT/ML VIAL SQ SCH (21:00)
[2016-10-22] MEDS: TORSEMIDE 10 MG TABLET PO SCH (21:27)
[2016-10-22] MEDS: ATORVASTATIN 20 MG TABLET PO SCH (21:27)
[2016-10-22] MEDS: SENNOSIDES/DOCUSATE SODIUM 1 TAB TABLET PO SCH (21:47)
[2016-10-22] MEDS: APIXABAN 2.5 MG TABLET PO SCH (21:47)
[2016-10-23] MEDS: INSULIN LISPRO 1 UNIT/0.01 ML UNIT SQ SCH ×5 (00:46→21:39)
[2016-10-23] MEDS: ALBUTEROL SULFATE 1 PUFF INHALER INH SCH ×3 (00:58→22:01)
[2016-10-23] MEDS: IPRATROPIUM/ALBUTEROL 3 ML AMPUL.NEB NEB SCH ×6 (03:06→23:05)
[2016-10-23 05:35] LABS: Mean Cell Volume 90.9 fL (80.0-100.0); Mean Corpuscular HGB Conc 33.2 g/dL (31.0-36.0); Mean Corpuscular Hemoglobin 30.2 pg (26.0-34.0); Platelet Count 163 K/mcL (140-440); RBC 3.83 M/mcL (4.50-5.90); Red Cell Distribution Width 16.5 % (11.5-14.5)
[2016-10-23] MEDS: 0.9 % SODIUM CHLORIDE 10 ML SYRINGE IV SCH ×3 (05:40→21:36)
[2016-10-23 05:51] LABS: ALT/SGPT 9 U/l (0-40); Albumin 3.3 gm/dL (3.2-5.2); Albumin/Globulin Ratio 1.3 (1.0-2.3); Alkaline Phosphatase 48 U/L (39-117); Bilirubin,Direct < 0.2 mg/dL (0.0-0.3); Blood Urea Nitrogen 35 mg/dl (8-23); Gamma Glutamyl Transpeptidase 16 U/L (8-61); Uric Acid 8.3 mg/dL (2.5-8.0)
[2016-10-23 06:40] LABS: Anisocytosis 1+ (NONE SEEN); Band Neutrophils % 1 % (0-10); Eosinophils % (Manual) 2 % (0-7); Lymphocytes % 23 % (15-49); Monocytes % (Manual) 5 % (1-12); Ovalocytes FEW (NONE SEEN); Platelet Estimate NORMAL (NORMAL); RBC Morphology ABNORM (NORMAL); Segmented Neutrophils % 67 % (38-78)
[2016-10-23] MEDS: BUDESONIDE 0.5 MG/2 ML AMPUL.NEB NEB SCH ×3 (06:51→19:03)
[2016-10-23] MEDS: LEVOTHYROXINE 100 MCG TABLET PO SCH (07:20)
[2016-10-23] MEDS: predniSONE 5 MG TABLET PO SCH (08:30)
[2016-10-23] MEDS: MULTIVIT,THER IRON,CA,FA & MIN 1 TABLET PO SCH (08:30)
[2016-10-23] MEDS: TAMSULOSIN 0.4 MG CAPSULE PO SCH (08:30)
[2016-10-23] MEDS: DOCUSATE SODIUM 100 MG CAPSULE PO SCH ×2 (08:30→21:35)
[2016-10-23] MEDS: TORSEMIDE 10 MG TABLET PO SCH ×2 (08:30→21:35)
[2016-10-23] MEDS: CARVEDILOL 12.5 MG TABLET PO SCH ×2 (08:30→21:34)
[2016-10-23] MEDS: APIXABAN 2.5 MG TABLET PO SCH ×2 (08:31→21:36)
[2016-10-23] MEDS ORDERED: LEVOFLOXACIN 750 MG/150 ML BAG IV SCH (09:00)
--- NOTE | 2016-10-23 09:52 | XRay Report ---
CLINICAL INFORMATION: Possible mild pulmonary edema. Follow-up. TECHNIQUE: AP upright portable chest x-ray COMPARISON: 10/21/2016 FINDINGS: Mild bibasilar pulmonary parenchymal density is unchanged. This may be chronic. No new parenchymal infiltrates. There is persistent mild cardiomegaly. IMPRESSION: No interval change Interpreted and Authenticated by: Andrae Hoover 10/23/16
--- NOTE | 2016-10-23 10:44 | Internal Med Progress Note ---
Medical - PN: Subj Patient information: Note initiated : 10/23/16 at 10:34 am Service Date, if different from initiated Date: [] Patient: Bird Knight 89 y/o M admitted on 10/21/16 for Dizziness, SOB, Hypotension. Chief Complaint: [] Interval history: 10/21- 89-year-old with history of congestive heart failure/chronic lymphedema admitted with lightheadedness and decompensated heart failure. admitted as inpatient. Start aggressive diuresis. Question of chest infiltrates on imaging. but no fever or evidence of infection. negative Procalcitonin. Echo pending 10/22-echo moderate with severe LA enlargement and passive pulmonary congestion. Continue diuresis. Outpatient cardiology follow-up for management with advanced symptoms including exertional dyspnea and lightheadedness. continue diuresis. 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 patient remains a very high risk decompensation without further evaluation. Case management to arrange SNF transfer. 10/23- patient doing well. feels a lot better. Responding to diuretics. Improved lightheadedness dizziness. Stable labs. ongoing physical therapy. Anticipate transfer to SNF in 48 hours. Recommend outpatient cardiology evaluation. restart spironolactone - Constitutional Vitals: Vital Signs Temp Pulse Resp BP Pulse Ox 98.0 F 90 20 119/74 94 10/23/16 07:20 10/23/16 07:49 10/23/16 07:20 10/23/16 07:20 10/23/16 07:20 Period Temp Pulse Resp BP Sys/Granados Pulse Ox Last 24 Hr 97.2 F-98.2 F 77-99 16-20 96-119/64-74 92-99 Intake and Output 10/22/16 10/23/16 10/23/16 21:59 05:59 13:59 Intake Total 300 / 300 575 / 575 480 / 480 Output Total 450 / 450 1750 / 1750 551 / 551 Balance -150 / -150 -1175 / -1175 -71 / -71 Weight 214 lb 9.6 oz Intake & Output: Intake & Output 10/22/16 10/23/16 10/23/16 21:59 05:59 13:59 Intake Total 300 / 300 575 / 575 480 / 480 Output Total 450 / 450 1750 / 1750 551 / 551 Balance -150 / -150 -1175 / -1175 -71 / -71 Weight 214 lb 9.6 oz Intake: Oral 300 / 300 575 / 575 480 / 480 Output: Void Amount 450 / 450 1750 / 1750 550 / 550 # of times incontinent of 1 / 1 urine Other: Meal Breakfast Percent of Meal Consumed 100% # Voids 1 Medical - PN: Obj Da - Labs CBC & Chem 7: 10/23/16 04:40 10/23/16 04:40 Labs: Abnormal Lab Results 10/23/16 10/23/16 10/22/16 04:40 04:40 04:50 RBC 3.83 L Hgb 11.6 L Hct 34.8 L RDW 16.5 H Myelocytes % Reactive Lymphocytes 3 H RBC Morphology Abnorm A Anisocytosis 1+ A Ovalocytes Few A RBC Fragments Occ A Carbon Dioxide 33 H 32 H BUN 35 H 43 H Creatinine 1.4 H 1.6 H Glucose 116 H Uric Acid 8.3 H 9.2 H Total Protein 5.5 L Albumin 3.0 L 10/22/16 04:50 RBC 3.63 L Hgb 10.8 L Hct 33.3 L RDW 16.2 H Myelocytes % 1 H Reactive Lymphocytes RBC Morphology Abnorm A Anisocytosis 1+ A Ovalocytes Few A RBC Fragments Few A Carbon Dioxide BUN Creatinine Glucose Uric Acid Total Protein Albumin Meds: Medications Acetaminophen (Tylenol) 650 mg PO Q4-6HP PRN PRN Reason: PAIN/FEVER > 101 Last Admin: 10/22/16 14:20 Dose: 650 mg Albuterol Sulfate (Ventolin) 2 puff INH BID [facility] Last Admin: 10/23/16 00:58 Dose: Not Given Albuterol/Ipratropium (Duoneb) 3 ml NEB Q4HRT [facility] Last Admin: 10/23/16 06:51 Dose: 3 ml Atorvastatin Calcium (Lipitor) 20 mg PO HS [facility] Last Admin: 10/22/16 21:27 Dose: 20 mg Budesonide (Pulmicort) 0.5 mg NEB Q12 [facility] Last Admin: 10/23/16 06:51 Dose: 0.5 mg Carvedilol (Coreg) 12.5 mg PO BIDCC [facility] Last Admin: 10/23/16 08:30 Dose: 12.5 mg Dextrose (Dextrose 50%) 0 ml IV UD PRN PRN Reason: Hypoglycemia Diagnostic Test (Pha) (Accu-Chek) 1 each FS ACHS [facility] Last Admin: 10/23/16 07:20 Dose: 1 each Docusate Sodium (Colace) 100 mg PO BID [facility] Last Admin: 10/23/16 08:30 Dose: 100 mg Magnesium Sulfate (Magnesium Sulfate) 2 gm in 50 mls @ 50 mls/hr IV UD PRN PRN Reason: MG = or < 1.7 Acetaminophen (Ofirmev) 1,000 mg in 100 mls @ 200 mls/hr IV Q6HP PRN PRN Reason: PAIN/FEVER > 101 Insulin Human Lispro (Humalog) 0 unit SQ [facility] PRN Reason: Protocol Last Admin: 10/23/16 07:20 Dose: Not Given Iron Carb/Multivit/Account Financial Manager/Folic Acid (Multivitamin W/Minerals) 1 tab PO DAILY [facility] Last Admin: 10/23/16 08:30 Dose: 1 tab Levothyroxine Sodium (Synthroid) 100 mcg PO QAMAC [facility] Last Admin: 10/23/16 07:20 Dose: 100 mcg Apixaban 2.5 Mg (Tablet) 1 dose PO BID [facility] Last Admin: 10/23/16 08:31 Dose: 1 dose Ondansetron HCl (Zofran) 4 mg IV Q4-6HP PRN PRN Reason: Nausea And Vomiting Potassium Chloride (Klor-Con) 40 meq PO DAILYP PRN PRN Reason: K+ < 3.5 Prednisone (Prednisone) 10 mg PO [facility] Last Admin: 10/23/16 08:30 Dose: 10 mg Senna/Docusate Sodium (Senna Plus Tablet) 1 tab PO HS [facility] Last Admin: 10/22/16 21:47 Dose: 1 tab Sodium Chloride (Saline Flush) 10 ml IV Q8 [facility] Last Admin: 10/23/16 05:40 Dose: 10 ml Tamsulosin HCl (Flomax) 0.4 mg PO DAILY [facility] Last Admin: 10/23/16 08:30 Dose: 0.4 mg Tiotropium [place] (Spiriva) 18 mcg INH DAILY [facility] Torsemide (Demadex) 40 mg PO BID [facility] Last Admin: 10/23/16 08:30 Dose: 40 mg Medical - PN: A/P - Time Spent With Patient Total time spent is greater than 50% in coordination of care (as documented) at patient's floor/unit and/or counseling patient: 25 - 35 minutes (1) Heart failure, diastolic, with acute decompensation Status: Acute Assessment and plan: * Acute decompensated heart failure with pulmonary edema-diastolic. underlying Severe with left atrial enlargement and passive pulmonary congestion. Recent multiple falls and exertional lightheadedness/dyspnea suggestive of symptomatic aortic stenosis. clinical improvement noted with continued beta mary and diuresis. recommend outpatient cardiology referral for valve replacement on discharge * Dyspnea secondary to above-PT OT/supplemental oxygen * Hyperlipidemia on statin * Hypertension on Coreg, spironolactone * History of COPD on Spiriva/budesonide * DM type II on metformin/ prandial insulin * BPH on tamsulosin * Hypothyroidism on thyroxine * Anticoagulation on rivaroxaban plan * Continue diuresis/Beta mary. tart spironolactone * Pre-existing medical condition management as above * Aggressive PT OT * Case management to arrange SNF transfer in light of high risk falls * Outpatient cardiology consult for aortic stenosis assessment in light of symptomatic with exertional dyspnea and lightheadedness leading to multiple falls Current Visit: Yes Medical - PN: Qual - VTE Deep Vein Thrombosis/Pulmonary Embolism Present on Admission: No
[2016-10-23] MEDS: TIOTROPIUM BROMIDE 18 MCG INHALANT INH SCH (11:27)
[2016-10-23] MEDS: metFORMIN 500 MG TAB.XL.24H PO SCH (21:33)
[2016-10-23] MEDS: SENNOSIDES/DOCUSATE SODIUM 1 TAB TABLET PO SCH (21:35)
[2016-10-23] MEDS: ATORVASTATIN 20 MG TABLET PO SCH (21:35)
[2016-10-24] MEDS: IPRATROPIUM/ALBUTEROL 3 ML AMPUL.NEB NEB SCH ×6 (03:02→22:36)
[2016-10-24] MEDS: 0.9 % SODIUM CHLORIDE 10 ML SYRINGE IV SCH ×3 (05:27→20:34)
[2016-10-24 05:51] LABS: Mean Cell Volume 91.6 fL (80.0-100.0); Mean Corpuscular HGB Conc 32.7 g/dL (31.0-36.0); Platelet Count 177 K/mcL (140-440); RBC 4.08 M/mcL (4.50-5.90); Red Cell Distribution Width 16.7 % (11.5-14.5)
[2016-10-24 06:05] LABS: ALT/SGPT 9 U/l (0-40); Albumin 3.4 gm/dL (3.2-5.2); Albumin/Globulin Ratio 1.2 (1.0-2.3); Alkaline Phosphatase 52 U/L (39-117); Bilirubin,Direct < 0.2 mg/dL (0.0-0.3); Blood Urea Nitrogen 35 mg/dl (8-23); Gamma Glutamyl Transpeptidase 14 U/L (8-61); Magnesium 2.1 mg/dL (1.6-2.5); Uric Acid 8.7 mg/dL (2.5-8.0)
[2016-10-24] MEDS: BUDESONIDE 0.5 MG/2 ML AMPUL.NEB NEB SCH ×2 (07:08→19:06)
[2016-10-24 07:19] LABS: Anisocytosis 1+ (NONE SEEN); Eosinophils % (Manual) 3 % (0-7); Lymphocytes % 24 % (15-49); Monocytes % (Manual) 8 % (1-12); Platelet Estimate NORMAL (NORMAL); RBC Morphology ABNORM (NORMAL); Segmented Neutrophils % 65 % (38-78)
[2016-10-24] MEDS: SPIRONOLACTONE 25 MG TABLET PO SCH (07:28)
[2016-10-24] MEDS: TORSEMIDE 10 MG TABLET PO SCH ×2 (07:28→20:33)
[2016-10-24] MEDS: LEVOTHYROXINE 100 MCG TABLET PO SCH (07:29)
[2016-10-24] MEDS: metFORMIN 500 MG TAB.XL.24H PO SCH ×2 (07:29→18:00)
[2016-10-24] MEDS: predniSONE 5 MG TABLET PO SCH (07:30)
[2016-10-24] MEDS: INSULIN LISPRO 1 UNIT/0.01 ML UNIT SQ SCH ×4 (07:50→20:36)
[2016-10-24] MEDS: DOCUSATE SODIUM 100 MG CAPSULE PO SCH ×2 (08:12→20:32)
[2016-10-24] MEDS: CARVEDILOL 12.5 MG TABLET PO SCH ×2 (08:12→17:09)
[2016-10-24] MEDS: TAMSULOSIN 0.4 MG CAPSULE PO SCH (08:12)
[2016-10-24] MEDS: MULTIVIT,THER IRON,CA,FA & MIN 1 TABLET PO SCH (08:12)
[2016-10-24] MEDS: TIOTROPIUM BROMIDE 18 MCG INHALANT INH SCH (08:13)
[2016-10-24] MEDS: ALBUTEROL SULFATE 1 PUFF INHALER INH SCH ×2 (08:14→19:41)
[2016-10-24] MEDS: APIXABAN 2.5 MG TABLET PO SCH ×2 (08:22→20:34)
--- NOTE | 2016-10-24 09:32 | Internal Med Progress Note ---
Medical - PN: Subj Patient information: Note initiated : 10/24/16 at 9:30 am Service Date, if different from initiated Date: [] Patient: Bird Knight 89 y/o M admitted on 10/21/16 for Dizziness, SOB, Hypotension. Chief Complaint: [] Interval history: 10/21- 89-year-old with history of congestive heart failure/chronic lymphedema admitted with lightheadedness and decompensated heart failure. admitted as inpatient. Start aggressive diuresis. Question of chest infiltrates on imaging. but no fever or evidence of infection. negative Procalcitonin. Echo pending 10/22-echo moderate with severe LA enlargement and passive pulmonary congestion. Continue diuresis. Outpatient cardiology follow-up for management with advanced symptoms including exertional dyspnea and lightheadedness. continue diuresis. 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 patient remains a very high risk decompensation without further evaluation. Case management to arrange SNF transfer. 10/23- patient doing well. feels a lot better. Responding to diuretics. Improved lightheadedness dizziness. Stable labs. ongoing physical therapy. Anticipate transfer to SNF in 48 hours. Recommend outpatient cardiology evaluation. restart spironolactone 10/24- intermittent RVR on telemetry. persistent lightheadedness on exertion. Recommend cardiology followed as outpatient for evaluation of aortic stenosis. Await SNF transfer. Continue physical therapy. Telemetry monitoring - Constitutional Vitals: Vital Signs Temp Pulse Resp BP Pulse Ox 97.3 F L 76 20 121/79 96 10/24/16 07:52 10/24/16 03:10 10/24/16 07:52 10/24/16 07:52 10/24/16 07:52 Period Temp Pulse Resp BP Sys/Granados Pulse Ox Last 24 Hr 97.0 F-98.8 F 76-92 16-20 103-133/66-84 94-98 Intake and Output 10/23/16 10/24/16 10/24/16 21:59 05:59 13:59 Intake Total 540 / 540 Output Total 450 / 450 975 / 975 200 / 200 Balance 90 / 90 -975 / -975 -200 / -200 Weight 211 lb 4.8 oz Intake & Output: Intake & Output 10/23/16 10/24/16 10/24/16 21:59 05:59 13:59 Intake Total 540 / 540 Output Total 450 / 450 975 / 975 200 / 200 Balance 90 / 90 -975 / -975 -200 / -200 Weight 211 lb 4.8 oz Intake: Oral 540 / 540 Output: Void Amount 450 / 450 975 / 975 200 / 200 Other: Meal Dinner Percent of Meal Consumed 100% Feeding Ability Assist with Tray Set Up # Voids 1 General appearance: cooperative, no acute distress Exam: alert oriented nonlabored breathing Improve lymphedema telemetry atrial fibrillation intermittent RVR Persistent orthostatic /exertional dizziness Medical - PN: Obj Da - Labs CBC & Chem 7: 10/24/16 04:15 10/24/16 04:15 Labs: Abnormal Lab Results 10/24/16 10/24/16 10/23/16 04:15 04:15 04:40 RBC 4.08 L Hgb 12.2 L Hct 37.3 L RDW 16.7 H Myelocytes % Reactive Lymphocytes RBC Morphology Abnorm A Anisocytosis 1+ A Ovalocytes RBC Fragments Chloride 94 L Carbon Dioxide 33 H 33 H BUN 35 H 35 H Creatinine 1.4 H 1.4 H Glucose 112 H 116 H Uric Acid 8.7 H 8.3 H Total Protein Albumin 10/23/16 10/22/16 10/22/16 04:40 04:50 04:50 RBC 3.83 L 3.63 L Hgb 11.6 L 10.8 L Hct 34.8 L 33.3 L RDW 16.5 H 16.2 H Myelocytes % 1 H Reactive Lymphocytes 3 H RBC Morphology Abnorm A Abnorm A Anisocytosis 1+ A 1+ A Ovalocytes Few A Few A RBC Fragments Occ A Few A Chloride Carbon Dioxide 32 H BUN 43 H Creatinine 1.6 H Glucose Uric Acid 9.2 H Total Protein 5.5 L Albumin 3.0 L Meds: Medications Acetaminophen (Tylenol) 650 mg PO Q4-6HP PRN PRN Reason: PAIN/FEVER > 101 Last Admin: 10/22/16 14:20 Dose: 650 mg Albuterol Sulfate (Ventolin) 2 puff INH BID [facility] Last Admin: 10/24/16 08:14 Dose: Not Given Albuterol/Ipratropium (Duoneb) 3 ml NEB Q4HRT [facility] Last Admin: 10/24/16 07:08 Dose: 3 ml Atorvastatin Calcium (Lipitor) 20 mg PO [facility] Last Admin: 10/23/16 21:35 Dose: 20 mg Budesonide (Pulmicort) 0.5 mg NEB Q12 [facility] Last Admin: 10/24/16 07:08 Dose: 0.5 mg [facility] ([facility]) [facility] Last Admin: 10/24/16 08:12 Dose: 12.5 mg Dextrose (Dextrose 50%) 0 ml IV UD PRN PRN Reason: Hypoglycemia Diagnostic Test (Pha) (Accu-Chek) 1 each FS ACHS [facility] Last Admin: 10/24/16 07:50 Dose: 1 each Docusate Sodium (Colace) 100 mg PO BID [facility] Last Admin: 10/24/16 08:12 Dose: 100 mg Magnesium Sulfate (Magnesium Sulfate) 2 gm in 50 mls @ 50 mls/hr IV UD PRN PRN Reason: MG = or < 1.7 Acetaminophen (Ofirmev) 1,000 mg in 100 mls @ 200 mls/hr IV Q6HP PRN PRN Reason: PAIN/FEVER > 101 Insulin Human Lispro (Humalog) 0 unit SQ [facility] PRN Reason: Protocol Last Admin: 10/24/16 07:50 Dose: Not Given Iron Carb/Multivit/Indigo Mixer/Folic Acid (Multivitamin W/Minerals) 1 tab PO DAILY [facility] Last Admin: 10/24/16 08:12 Dose: 1 tab Levothyroxine Sodium (Synthroid) 100 mcg PO [facility] Last Admin: 10/24/16 07:29 Dose: 100 mcg Metformin HCl (Glucophage) [facility] Last Admin: 10/24/16 07:29 Dose: 500 mg Apixaban 2.5 Mg (Tablet) 1 dose PO BID [facility] Last Admin: 10/24/16 08:22 Dose: 1 dose Ondansetron HCl (Zofran) 4 mg IV Q4-6HP PRN PRN Reason: Nausea And Vomiting Potassium Chloride (Klor-Con) 40 meq PO DAILYP PRN PRN Reason: K+ < 3.5 [facility]) [facility] Last Admin: 10/24/16 07:30 Dose: 10 mg Senna/Docusate Sodium (Senna Plus Tablet) 1 tab PO [facility] Last Admin: 10/23/16 21:35 Dose: 1 tab Sodium Chloride (Saline Flush) 10 ml IV Q8 [facility] Last Admin: 10/24/16 05:27 Dose: 10 ml Spironolactone (Aldactone) 25 mg PO DAILY [facility] Last Admin: 10/24/16 07:28 Dose: 25 mg Tamsulosin HCl (Flomax) 0.4 mg PO DAILY [facility] Last Admin: 10/24/16 08:12 Dose: 0.4 mg Tiotropium [place] (Spiriva) 18 mcg INH DAILY [facility] Last Admin: 10/24/16 08:13 Dose: Not Given Torsemide (Demadex) 40 mg PO BID [facility] Last Admin: 10/24/16 07:28 Dose: 40 mg Medical - PN: A/P - Time Spent With Patient Total time spent is greater than 50% in coordination of care (as documented) at patient's floor/unit and/or counseling patient: 15 - 24 minutes (1) Heart failure, diastolic, with acute decompensation Status: Acute Assessment and plan: * Acute decompensated heart failure with pulmonary edema-diastolic. clinically improving. underlying Severe with left atrial enlargement and passive pulmonary congestion. Recent multiple falls and exertional lightheadedness/ dyspnea suggestive of symptomatic aortic stenosis. continue beta mary and diuresis. recommend outpatient cardiology referral for valve replacement on discharge. await SNF transfer * Dyspnea secondary to above-PT OT/supplemental oxygen * Hyperlipidemia on statin * Hypertension on Coreg, spironolactone * History of COPD on Spiriva/budesonide * DM type II on metformin/ prandial insulin * BPH on tamsulosin * Hypothyroidism on thyroxine * Anticoagulation on rivaroxaban plan * Continue diuresis/Beta mary, spironolactone * Pre-existing medical condition management as above * continue Aggressive PT OT * await SNF transfer in light of high risk falls * Outpatient cardiology consult for aortic stenosis assessment in light of symptomatic with exertional dyspnea and lightheadedness leading to multiple falls Current Visit: Yes Medical - PN: Qual - VTE Deep Vein Thrombosis/Pulmonary Embolism Present on Admission: No
[2016-10-24] MEDS: 0.9 % SODIUM CHLORIDE 500 ML IV SCH (19:24)
[2016-10-24] MEDS ORDERED: BISACODYL 10 MG SUPP.RECT PR PRN (19:38)
[2016-10-24] MEDS ORDERED: MAGNESIUM HYDROXIDE 30 ML ORAL.SUSP PO PRN (19:38)
[2016-10-24] MEDS: SENNOSIDES/DOCUSATE SODIUM 1 TAB TABLET PO SCH (20:32)
[2016-10-24] MEDS: ATORVASTATIN 20 MG TABLET PO SCH (20:32)
[2016-10-25] MEDS: IPRATROPIUM/ALBUTEROL 3 ML AMPUL.NEB NEB SCH ×3 (04:37→10:56)
[2016-10-25] MEDS: 0.9 % SODIUM CHLORIDE 10 ML SYRINGE IV SCH (04:37)
[2016-10-25 05:47] LABS: Mean Cell Volume 88.2 fL (80.0-100.0); Mean Corpuscular HGB Conc 32.9 g/dL (31.0-36.0); Platelet Count 178 K/mcL (140-440); RBC 3.99 M/mcL (4.50-5.90); Red Cell Distribution Width 15.4 % (11.5-14.5)
[2016-10-25 06:12] LABS: ALT/SGPT 15 U/l (0-40); Albumin 3.3 gm/dL (3.2-5.2); Albumin/Globulin Ratio 1.1 (1.0-2.3); Alkaline Phosphatase 51 U/L (39-117); Bilirubin,Direct < 0.2 mg/dL (0.0-0.3); Blood Urea Nitrogen 36 mg/dl (8-23); Gamma Glutamyl Transpeptidase 15 U/L (8-61); Magnesium 2.1 mg/dL (1.6-2.5); Uric Acid 9.1 mg/dL (2.5-8.0)
[2016-10-25 06:53] LABS: Band Neutrophils % 1 % (0-10); Eosinophils % (Manual) 2 % (0-7); Lymphocytes % 20 % (15-49); Monocytes % (Manual) 6 % (1-12); Platelet Estimate NORMAL (NORMAL); RBC Morphology NORMAL (NORMAL); Segmented Neutrophils % 71 % (38-78)
[2016-10-25] MEDS: BUDESONIDE 0.5 MG/2 ML AMPUL.NEB NEB SCH (07:33)
[2016-10-25] MEDS: LEVOTHYROXINE 100 MCG TABLET PO SCH (07:51)
[2016-10-25] MEDS: INSULIN LISPRO 1 UNIT/0.01 ML UNIT SQ SCH ×2 (08:40→12:09)
[2016-10-25] MEDS: CARVEDILOL 12.5 MG TABLET PO SCH (08:41)
[2016-10-25] MEDS: predniSONE 5 MG TABLET PO SCH (08:43)
[2016-10-25] MEDS: metFORMIN 500 MG TAB.XL.24H PO SCH (08:43)
[2016-10-25] MEDS: TORSEMIDE 10 MG TABLET PO SCH (08:44)
[2016-10-25] MEDS: SPIRONOLACTONE 25 MG TABLET PO SCH (08:44)
[2016-10-25] MEDS: TAMSULOSIN 0.4 MG CAPSULE PO SCH (08:44)
[2016-10-25] MEDS: MULTIVIT,THER IRON,CA,FA & MIN 1 TABLET PO SCH (08:44)
[2016-10-25] MEDS: APIXABAN 2.5 MG TABLET PO SCH (08:44)
[2016-10-25] MEDS: DOCUSATE SODIUM 100 MG CAPSULE PO SCH (08:45)
[2016-10-25] MEDS: ALBUTEROL SULFATE 1 PUFF INHALER INH SCH (10:02)
[2016-10-25] MEDS: TIOTROPIUM BROMIDE 18 MCG INHALANT INH SCH (10:02)
--- NOTE | 2016-10-25 12:17 | Discharge Summary ---
Medical - DS: Prov Patient information: Note initiated : 10/25/16 at 12:12 pm Service Date, if different from initiated Date: [] Patient: Bird Knight 89 y/o M admitted on 10/21/16 for Dizziness, SOB, Hypotension. Chief Complaint: [] Date of admission: 10/21/16 20:18 Discharge date: 10/25/16 Primary care physician: [f_Reg Prim Care Provider] Consults: 10/22/16 13:40 Consult to Physician [CONS] Routine Comment: Consulting Provider: [facility] Reason For Exam: Physician to Consult 10/25/16 08:40 Consult to Physician [CONS] Routine Comment: Consulting Provider: [facility] Reason For Exam: Physician to Consult Medical - DS: Meds - Discharge Medications Active and Home Medications: Home Medications Albuterol Sulfate [Ventolin] 2 puff INH BID 10/21/16 [History Confirmed Last Taken Unknown] Apixaban [Eliquis] 2.5 mg PO BID 10/21/16 [History Confirmed 10/21/16 Last Taken Unknown] Atorvastatin [Lipitor] 20 mg PO HS 10/21/16 [History Confirmed 10/21/16 Last Taken Unknown] Budesonide [Pulmicort] 0.5 mg NEB Q12 10/21/16 [History Confirmed 10/21/16 Last Taken Unknown] Carvedilol [Coreg] 1.5 tab PO BID 10/21/16 [History Confirmed 10/21/16 Last Taken Unknown] Docusate Sodium [Colace] 100 mg PO BID 10/21/16 [History Confirmed 10/21/16 Last Taken Unknown] Ipratropium/Albuterol [Duoneb] 3 ml NEB Q6HP PRN 10/21/16 [History Confirmed 04/29 Last Taken Unknown] Levothyroxine Sodium [Synthroid] 100 mcg PO DAILY 10/21/16 [History Confirmed Last Taken Unknown] Ondansetron HCl [Zofran] 4 mg PO Q6H PRN 10/21/16 [History Confirmed 10/21/16 Last Taken Unknown] Spironolactone 25 mg PO DAILY 10/21/16 [History Confirmed 10/21/16 Last Taken Unknown] Tamsulosin HCl [Flomax] 0.4 mg PO DAILY 10/21/16 [History Confirmed 10/21/16 Last Taken Unknown] Tiotropium [place] [Spiriva] 18 mcg INH DAILY 10/21/16 [History Confirmed Last Taken Unknown] Torsemide [Demadex] 40 mg PO BID 10/21/16 [History Confirmed 10/21/16 Last Taken Unknown] metFORMIN HCL [Fortamet] 500 mg PO BID 10/21/16 [History Confirmed 10/21/16 Last Taken Unknown] predniSONE [Prednisone] 10 mg PO DAILY 10/21/16 [History Confirmed 10/21/16 Last Taken Unknown] Medical - DS: Hosp Hospital course: DISCHARGE DIAGNOSIS * Acute decompensated heart failure with pulmonary edema-diastolic. clinically resolved. underlying Severe with left atrial enlargement and passive pulmonary congestion. Recent multiple falls and exertional lightheadedness/ dyspnea suggestive of symptomatic aortic stenosis. continue beta mary and outpatient diuretics. recommend outpatient cardiology referral for valve replacement on discharge. await SNF transfer * Dyspnea secondary to above- nearly resolved. Continue PT OT at SNF. * Hyperlipidemia on statin * Hypertension continue on Coreg, spironolactone * History of COPD continue on Spiriva/budesonide * DM type II on metformin/ prandial insulin * BPH on tamsulosin * Hypothyroidism on thyroxine * Anticoagulation on rivaroxaban [facility]RI[facility] H[facility]PITAL COURSE Mr. Knight is a 89 year old male 10/21- 89-year-old with history of congestive heart failure/chronic lymphedema admitted with lightheadedness and decompensated heart failure. admitted as inpatient. Start aggressive diuresis. Question of chest infiltrates on imaging. but no fever or evidence of infection. negative Procalcitonin. Echo pending 10/22-echo moderate with severe LA enlargement and passive pulmonary congestion. Continue diuresis. Outpatient cardiology follow-up for management with advanced symptoms including exertional dyspnea and lightheadedness. continue diuresis. 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 patient remains a very high risk decompensation without further evaluation. Case management to arrange SNF transfer. 10/23- patient doing well. feels a lot better. Responding to diuretics. Improved lightheadedness dizziness. Stable labs. ongoing physical therapy. Anticipate transfer to SNF in 48 hours. Recommend outpatient cardiology evaluation. restart spironolactone 10/24- intermittent RVR on telemetry. persistent lightheadedness on exertion. Recommend cardiology followed as outpatient for evaluation of aortic stenosis. Await SNF transfer. Continue physical therapy. Telemetry monitoring 10/25- patient doing well. No overnight events. No significant dizziness or telemetry events. Discharging to [facility] for continued posthospitalization rehabilitation. recommend outpatient cardiology follow-up for evaluation of aortic stenosis and possible valve replacement in light of symptomatic aortic stenosis leading to his recurrent fall, exertional dyspnea and syncope. Detailed discharge instructions as below Discharge diagnosis: . - Time Spent with Patient Total time spent providing and/or coordinating discharge services: Greater than 30 minutes Medical - DS: Exam - Constitutional Vitals: Vital Signs Temp Pulse Pulse Resp BP Pulse Ox 10/25/16 10:57 91 H 18 10/25/16 08:00 98.5 F 97 H 18 132/78 90 10/25/16 07:38 86 16 10/25/16 04:00 97.7 F 20 112/83 97 10/25/16 00:00 98.9 F 20 109/69 94 10/24/16 22:46 87 16 10/24/16 20:00 97.8 F 20 107/64 97 10/24/16 19:17 90 16 94 10/24/16 19:14 85 10/24/16 15:52 97.3 F L 20 99/63 97 10/24/16 15:19 100 H 16 Intake and Output 10/24/16 10/25/16 10/25/16 21:59 05:59 13:59 Intake Total 540 / 540 300 / 300 500 / 500 Output Total 700 / 700 950 / 950 526 / 526 Balance -160 / -160 -650 / -650 -26 / -26 Intake: Oral 540 / 540 300 / 300 500 / 500 Output: Void Amount 700 / 700 950 / 950 525 / 525 # of times incontinent of 1 / 1 urine Other: Meal Dinner Breakfast Percent of Meal Consumed 100% 100% Feeding Ability Independent # Voids 1 Weight 211 lb 6.4 oz 211 lb 6.4 oz General appearance: cooperative, no acute distress Additional comments: alert oriented no significant dyspnea or lightheadedness no telemetry events Medical - DS: Data Labs on day of discharge: Labs from last 24 hours 10/25/16 10/25/16 04:15 04:15 WBC 9.3 RBC 3.99 L Hgb 11.6 L Hct 35.2 L MCV 88.2 MCH 29.0 MCHC 32.9 RDW 15.4 H Plt Count 178 MPV 8.7 Total Counted 100 Seg Neutrophils % 71 Band Neutrophils % 1 Lymphocytes % 20 Monocytes % (Manual) 6 Eosinophils % (Manual) 2 WBC Morphology Normal Platelet Estimate Normal RBC Morphology Normal Sodium 139 Potassium 3.6 Chloride 95 L Carbon Dioxide 33 H Anion Gap 11.0 BUN 36 H Creatinine 1.3 H GFR Calculation 48 Glucose 123 H Uric Acid 9.1 H Calcium 9.1 Phosphorus 4.1 Magnesium 2.1 Total Bilirubin 0.4 Direct Bilirubin < 0.2 GGT 15 AST 19 ALT 15 Alkaline Phosphatase 51 Lactate Dehydrogenase 159 Total Protein 6.3 Albumin 3.3 Globulin 3.0 Albumin/Globulin Ratio 1.1 Triglycerides 120 Medical - DS: A/P - Patient/Caregiver Discharge Instructions Activity: as per physical therapy, increase activity as tolerated, resume usual activities as tolerated Diet: Consistent Carbohydrate Additional Instructions: Follow-up PCP in 5 days Follow-up with cardiology in the next 7 days for evaluation of aortic stenosis( recurrent falls with exertional dyspnea/lightheadedness) I recommend SNF physician to check CBC BMP as a posthospital follow-up Continue fall precautions daily weights measurements and take additional 40 mg torsemide for 3 days if weight gain over 4 pounds over baseline or worsening shortness of breath and call primary care physician if inadequate response to Lasix Continue aggressive PT OT at SNF All meals on chair sitting upright at 90 degrees to prevent aspiration Return to ER if worsening fever chills shortness of breath, diarrhea, bleeding Refrain from smoking and alcohol Continue diet and activity as advised Discussed importance of medication adherence Please review medication list with patient prior to discharge Please schedule follow-up with PCP/Providers prior to discharge and provide printouts Portions of this chart may have been created with [employer] voice recognition software. Occasional wrong-word or ?sound-like? substitutions may have occurred due to the inherent limitations of voice recognition software. Please read the chart carefully and recognize, using context, where the substitutions have occurred. CC- PCP - Problem Maintenance (1) Heart failure, diastolic, with acute decompensation Status: Acute - Follow up Plan Follow up with: Sergio Gu MD [Primary Care Provider] - Disposition: [facility] Prognosis: Good Rehab Potential: Fair I certify that the patient requires SNF services: No Overall status at discharge: patient is progressing back to baseline Medical - DS: Qual - VTE Deep Vein Thrombosis/Pulmonary Embolism Present on Admission: No
== END 2016-10-25 13:25 | DRG 291 ==
LOC: ED 15:59 → ICU 20:18
PROVIDERS: ADMIT Internal Medicine; ATTEND Internal Medicine